=== PATIENT | female | born 1995 | race American Indian/Alaskan Native ===

== ENCOUNTER 2018-01-17 20:14 | Emergency (ER) | payer BC ==
[2018-01-17 22:11] LABS: Bilirubin,Urine NEG (Negative); Blood,Urine LG (Negative); Color,Urine Yellow (Yellow); Mucus,Urine 3+ /HPF; RBC,Urine > 182.0 /HPF (0.0-6.0)
[2018-01-17 22:48] LABS: HCG Qualitative,Urine Negative (Negative)
[2018-01-17 23:39] VITALS: BP 126/76
--- NOTE | 2018-01-17 23:52 | Emergency Department Report ---
ED Female HPI - General Chief complaint: Urogenital-Female Stated complaint: VAGINAL D/C WITH ODOR Time Seen by Provider: 01/17/18 23:46 Source: patient Mode of arrival: Ambulatory Limitations: No Limitations - History of Present Illness Initial comments: 22-year-old -[place] female presents to the emergency room for vaginal irritation. Patient reports that she is having vaginal itching to the point where she has irritated her external vaginal area. Patient reports that it is swollen and painful. She reports that her clitoris and labia minora are swollen and very sensitive to any touch. Patient reports that she's had vaginal discharge but currently is on her period at this time. MD Complaint: vaginal bleeding, vaginal discharge -: week(s) (1) Are you Now?: No Last Menstrual Period: 01/17/18 EDC: 10/24/18 Associated Symptoms: denies: abdominal pain, nausea/vomiting, fever/chills - Related Data Sexually active: Yes Previous Rx's Medication Instructions Recorded Last Taken Type Fluconazole [Diflucan] 150 mg PO QDAY 1 Days #1 tablet 01/18/18 Unknown Rx Nitrofurantoin Monohyd/M-Cryst 100 mg PO BID #14 capsule 01/18/18 Unknown Rx [Macrobid 100 mg Capsule] metroNIDAZOLE [Metronidazole] 500 mg PO TID 7 Days #21 tablet 01/18/18 Unknown Rx Allergies Allergy/AdvReac Type Severity Reaction Status Date / Time No Known Allergies Allergy Verified 09/15/15 12:47 ED Review of Systems ROS: Stated complaint: VAGINAL D/C WITH ODOR Other details as noted in HPI ED Past Medical Hx - Past Medical History Hx Asthma: Yes - Social History Smoking Status: Never Smoker Substance Use Type: None - Medications Home Medications: Home Medications Medication Instructions Recorded Confirmed Last Taken Type Fluconazole [Diflucan] 150 mg PO QDAY 1 Days #1 tablet 01/18/18 Unknown Rx Nitrofurantoin Monohyd/M-Cryst 100 mg PO BID #14 capsule 01/18/18 Unknown Rx [Macrobid 100 mg Capsule] metroNIDAZOLE [Metronidazole] 500 mg PO TID 7 Days #21 tablet 01/18/18 Unknown Rx ED Physical Exam - General Limitations: No Limitations General appearance: alert, in no apparent distress - ENT ENT exam: Present: mucous membranes moist - Respiratory Respiratory exam: Present: normal lung sounds bilaterally. Absent: respiratory distress - Cardiovascular Cardiovascular Exam: Present: regular rate, normal rhythm. Absent: systolic murmur, diastolic murmur, rubs, gallop - GI/Abdominal GI/Abdominal exam: Present: soft, normal bowel sounds - External exam: Present: erythema, swelling, other (tender to touch) Speculum exam: Present: other (too tender to get a speculum exam, was able to obtain cultures) - Extremities Exam Extremities exam: Present: full ROM ED Course Vital Signs 01/17/18 01/17/18 20:48 23:37 Temperature 98.7 F Pulse Rate 80 80 Respiratory 16 18 Rate Blood Pressure 122/73 Blood Pressure 126/76 [Left] O2 Sat by Pulse 96 98 Oximetry ED Medical Decision Making - Medical Decision Making Patient has been evaluated by this provider fast track. Wet prep GC chlamydia has cultures have been obtained and sent to the lab. Urinalysis appears to show a urinary tract infection hCG negative Discussed with patient, treated for urinary tract infection and most likely a yeast Critical care attestation.: If time is entered above; I have spent that time in minutes in the direct care of this critically ill patient, excluding procedure time. ED Disposition Clinical Impression: BV (bacterial vaginosis) UTI (urinary tract infection) Qualifiers: Urinary tract infection type: acute cystitis Hematuria presence: with hematuria Qualified Code(s): N30.01 - Acute cystitis with hematuria Disposition: TO HOME OR SELFCARE Is pt being admited?: No Does the pt Need Aspirin: No Condition: Stable Instructions: Bacterial Vaginosis (ED), Fluconazole (By mouth), Metronidazole ( By mouth) Additional Instructions: Complete antibiotics as prescribed. Follow up with your primary care provider or [facility] if symptoms persist or gets worse. Prescriptions: Fluconazole [Diflucan] 150 mg PO QDAY 1 Days #1 tablet metroNIDAZOLE [Metronidazole] 500 mg PO TID 7 Days #21 tablet Nitrofurantoin Monohyd/M-Cryst [Macrobid 100 mg Capsule] 100 mg PO BID #14 capsule Referrals: PRIMARY CARE, [Primary Care Provider] - 3-5 Days [facility] [Provider Group] - 3-5 Days Forms: STI Treatment and Prevention, Work/School Release Form(ED)
== END 2018-01-18 00:50 | disposition home or self-care (01) ==
LOC: ED 20:14
DX: N30.01 Acute cystitis with hematuria (principal); N76.0 Acute vaginitis; J45.909 Unspecified asthma, uncomplicated
CPT/HCPCS: 81001; 81025; 87210; 87591; 99284